=== PATIENT | female | born 1990 | race Caucasian/White ===

== ENCOUNTER 2016-12-20 20:55 | Emergency (ER) | payer MEDICAID ==
[~2016-12-20] VITALS: Ht 172.7 cm; Wt 125.2 kg
[2016-12-20 22:30] LABS: HEMATOCRIT 35.9 % (34.6-47.8); HEMOGLOBIN 11.7 g/dL (11.7-16.4); WHITE BLOOD COUNT 13.6 x10^3/uL (3.4-10)
[2016-12-21 00:17] VITALS: BP 112/75
== END 2016-12-21 00:20 | disposition home or self-care (01) ==
LOC: ED 12-21 00:05
DX: N93.8 Other specified abnormal uterine and vaginal bleeding (principal); F17.200 Nicotine dependence, unspecified, uncomplicated; Z88.1 Allergy status to other antibiotic agents; Z88.0 Allergy status to penicillin; Z88.8 Allergy status to other drugs, medicaments and biological substances; J45.909 Unspecified asthma, uncomplicated
CPT/HCPCS: 36415; 84703; 85025; 99284

== ENCOUNTER 2017-05-22 15:24 | Emergency (ER) | payer MEDICAID ==
[~2017-05-22] VITALS: Ht 170.2 cm; Wt 130.1 kg
[2017-05-22 15:37] VITALS: BP 129/84
[2017-05-22 17:00] LABS: CLUE CELLS NONE SEEN (NONE SEEN); WET PREP WBCS FEW (FEW)
[2017-05-22 17:14] LABS: HCG UR SG 1.036 (1.003-1.030); MICROSCOPIC NOT IND
[2017-05-22 17:17] LABS: CULTURE INDICATED? NO
== END 2017-05-22 17:59 | disposition home or self-care (01) ==
LOC: ED 17:45
DX: R05 Cough (principal); N89.8 Other specified noninflammatory disorders of vagina; J00 Acute nasopharyngitis [common cold]; Z90.49 Acquired absence of other specified parts of digestive tract
CPT/HCPCS: 71046; 81003; 81025; 87210; 87491; 87591; 87808; 93005; 99285

== ENCOUNTER 2017-07-16 20:54 | Emergency (ER) | payer MEDICAID ==
[~2017-07-16] VITALS: Ht 170.2 cm; Wt 136.3 kg
[2017-07-16 20:55] VITALS: BP 129/81
[2017-07-16] MEDS ORDERED: DEXAMETHASONE 4 MG TABLET ONE (21:28)
[2017-07-16] MEDS ORDERED: DEXAMETHASONE 4 MG TABLET PO ONE (21:30)
== END 2017-07-16 22:13 | disposition home or self-care (01) ==
LOC: ED 22:00
DX: J02.9 Acute pharyngitis, unspecified (principal); B34.9 Viral infection, unspecified; Z90.49 Acquired absence of other specified parts of digestive tract
CPT/HCPCS: 87081; 87880; 99284

== ENCOUNTER 2018-10-28 17:13 | Emergency (ER) | payer SELFPAY ==
[~2018-10-28] VITALS: Ht 170.2 cm; Wt 134.3 kg
--- NOTE | 2018-10-28 17:52 | NUR ---
PT AMBULATORY TO RESTROOM WITH STEADY GAIT FOR UA.
--- NOTE | 2018-10-28 17:53 | NUR ---
PT ARRIVED TO ROOM 22 AMBULATORY. PT DRESSED IN GOWN, AAO X 4, RESTING ON GURNEY WITH CALL LIGHT WITHIN REACH. PT C/O SHARP PAIN UP SPINE AND IN UTERUS, STARTED TWO WEEKS AGO. PT STATES LMP 08/06/18, PT STATES TOOK TWO TESTS AND BOTH WERE NEGATIVE, LAST TEST 09/29. PT DOES STATE UNPROTECTED SEX. VSS, ROOM AIR, NAD.
[2018-10-28 18:19] LABS: HCG UR SG 1.022 (1.003-1.030); MICROSCOPIC NOT IND
--- NOTE | 2018-10-28 18:25 | NUR ---
LAB AT BEDSIDE.
[2018-10-28 18:28] LABS: CULTURE INDICATED? NO
--- NOTE | 2018-10-28 18:40 | NUR ---
PT TO US.
[2018-10-28 18:45] LABS: BASOPHILS # (AUTO) 0.06 x10^3/uL (0-0.1); BASOPHILS % (AUTO) 1 % (0-1); EOSINOPHILS # (AUTO) 0.41 x10^3/uL (0-0.4); EOSINOPHILS % (AUTO) 4 % (1-7); LYMPHOCYTES # (AUTO) 3.81 x10^3/uL (1-3.4); LYMPHOCYTES % (AUTO) 36 % (22-44); MD NO; MEAN CORPUSCULAR HEMOGLOBIN 29.1 pg (27.0-34.8); MEAN CORPUSCULAR HGB CONC 33.3 g/dL (32.4-35.8); MEAN CORPUSCULAR VOLUME 87.5 fL (80-100); MEAN PLATELET VOLUME 8.2 fL (7.4-10.4); MONOCYTES # (AUTO) 0.56 x10^3/uL (0.2-0.8); MONOCYTES % (AUTO) 5 % (2-9); NEUTROPHILS # (AUTO) 5.73 x10^3/uL (1.8-6.8); NEUTROPHILS % (AUTO) 54 % (42-75); PLATELET COUNT 287 x10^3/uL (130-400); RED BLOOD COUNT 4.55 x10^6/uL (3.82-5.3); RED CELL DISTRIBUTION WIDTH 14.1 % (9.6-15.2)
[2018-10-28 18:50] LABS: ALBUMIN 3.5 g/dL (3.4-5.0); ANION GAP 7 mmol/L (5-15); CALCIUM 8.6 mg/dL (8.5-10.1); CHLORIDE 108 mmol/L (98-107); CREATININE 0.86 mg/dL (0.55-1.02)
[2018-10-28 19:49] VITALS: BP 118/63
--- NOTE | 2018-10-28 19:50 | NUR ---
Patient/Caregiver given discharge instructions and they have confirmed that they understand the instructions. Patient ambulatory with steady gait.
== END 2018-10-28 19:51 | disposition home or self-care (01) ==
LOC: ED 19:40
DX: R10.2 Pelvic and perineal pain (principal); M54.5 Low back pain; E28.2 Polycystic ovarian syndrome; J45.909 Unspecified asthma, uncomplicated; F17.200 Nicotine dependence, unspecified, uncomplicated; Z90.49 Acquired absence of other specified parts of digestive tract; Z98.890 Other specified postprocedural states
CPT/HCPCS: 36415; 76830; 80048; 81003; 81025; 82040; 85025; 99284